=== PATIENT | male | born 1975 | race Caucasian/White ===

== ENCOUNTER 2016-05-31 12:13 | Emergency (ER) | payer MEDICAID ==
[2016-05-31 12:59] VITALS: BP 181/106; PULSE 89; RESP 16; TEMP 99; O2SAT 94
--- NOTE | 2016-05-31 13:43 | UCPHY ---
H & P Time Seen by Provider: 05/31/16 12:59 Patient Type: Established HPI/ROS: This patient presents with a chief complaint of an injury to his left 5th digit which occurred last night while playing basketball. He localizes pain to the MP joint and the proximal phalanx and is aware of significant swelling. Smoking Status: Never smoked Physical Exam: This is a well-developed well-nourished male who is in no acute distress. He is alert, appropriate and has a normal mental status. Examination of the left hand reveals prominent swelling over the proximal phalanx associated with ecchymosis that extends into the extensor surface overlying the distal 5th metacarpal. There is some tenderness over the MP joint but tenderness is maximal over the proximal phalanx. There is also swelling and tenderness extending distally. CMS is intact. Skin is intact. There is no deformity. Constitutional: Initial Vital Signs Temperature (C) 37.2 C 05/31/16 12:56 Heart Rate 89 05/31/16 12:56 Respiratory Rate 16 05/31/16 12:56 Blood Pressure 181/106 H 05/31/16 12:56 O2 Sat (%) 94 05/31/16 12:56 O2 Delivery Mode Room Air Allergies/Adverse Reactions: No Known Allergies Allergy (Verified 05/31/16 12:56) Home Medications: Medication Instructions Recorded NK [No Known Home Meds] 05/31/16 Medical Decision Making - Diagnostics Imaging: X-rays of the digit reveals a spiral fracture of the proximal phalanx without involvement of the MP or PIP joints. There is minimal deformity present. ED Course/Re-evaluation: A foam aluminum splint was applied. Differential Diagnosis: This patient was referred to Hand surgery because of potential shortening or angulation. Departure - Departure Disposition: Home, Routine, Self-Care Clinical Impression: Finger fracture, left Condition: Good Instructions: Finger Fracture (ED) Additional Instructions: You should make an appointment with the hand specialist whose name is given to you in these pages and arrange to be seen within the next 5 or 6 days. Wear the splint continuously until told not to. Apply ice to the area of injury for 20 minutes every 2 hours for 3 days following your injury. After 3 days (72 hours) it is safe to apply heat frequently throughout the day and I would recommend you're doing so. However if ice feels better it is okay to do this. Elevate the area of the injury as much as possible for the next 2 or 3 days or longer if you have a serious injury. If you have been told that it is safe to use the injured extremity do so in a limited fashion for the first 2-3 days. Afterwards left pain be your guide. Adult Pain & Fever Control: We recommend Acetaminophen (Tylenol) and Ibuprofen (Motrin, Advil) for pain and fever control. When fever is high or pain severe, both drugs can be used at the same time, but at different intervals. Please note the time differences. Your dose is: Acetaminophen [650]mg every 4 to 6 hours ibuprofen [600]mg every [6] hours with food OR naproxen Sodium (Aleve) [440]mg every 12 hours. Note: do not take Acetaminophen with Hydrocodone (Vicodin, Lortab) or Oxycodone (Percocet). These medications also contain Acetaminophen. No more than 3000 mg of Acetaminophen should be taken in 24 hours (for an adult) . The maximal dose of ibuprofen that it is safe in a 24-hour period is 2400 mg. You may take 400 mg every 4 hours, 600 mg every 6 hours or 800 mg every 8 hours safely. Referrals: Graciela Perez MD [Primary Care Provider] - As per Instructions Shashank Fisher MD [Medical Doctor] - As per Instructions - PQRS PQRS Measurement: Not applicable
== END 2016-05-31 13:55 | disposition home or self-care (01) ==
LOC: CED 12:13
PROC: 2W3KX1Z Immobilization of Left Finger using Splint (ICD-10-PCS; principal; 2016-05-31)
DX: S62.617A Displaced fracture of proximal phalanx of left little finger, initial encounter for closed fracture (principal); W22.8XXA Striking against or struck by other objects, initial encounter; Y93.67 Activity, basketball
CPT/HCPCS: 73140-PO; 99214-PO; G0463-PO

== ENCOUNTER 2017-10-15 21:03 | Emergency (ER) | payer MEDICAID ==
[2017-10-15 21:28] VITALS: BP 199/118
--- NOTE | 2017-10-15 21:49 | EDPHY ---
H & P Time Seen by Provider: 10/15/17 21:37 HPI/ROS: This patient sustained injury playing softball 3 weeks ago. He was playing pincher there is a line drive to his right ankle the blow to the medial aspect of the ankle. He has had ongoing pain the medial malleolus since that time that is 3/10 at baseline, 5/10 with dorsiflexion of the foot and walking. He reports partial improvement in symptoms from ibuprofen Tylenol and no other exacerbating factors. Given the persistent symptoms he came in for evaluation. This is his 1st visit to see a physician since the injury occurred. ROS: Musculoskeletal: No other injuries Cardiovascular: No significant posterior calf swelling or tenderness. No chest pain. Pulmonary: No dyspnea Integumentary: No associated lacerations abrasions 5 point ROS is otherwise negative Past Medical/Surgical History: Otherwise healthy Smoking Status: Never smoked Physical Exam: Physical Exam Vital signs are normal. General: No acute distress HEENT: Atraumatic. Eyes: Pupils equal and react to light. Extraocular motions are intact. Lungs: No respiratory distress. Cardiac: Brisk capillary refill is intact throughout. Pulses are 2+ and symmetric in the affected extremity. Skin: No rash or pallor. Extremities: Atraumatic normal except for right ankle Right ankle: Patient has medial malleolar tenderness. There is no lateral malleolus tenderness, Achilles tenderness or foot swelling or tenderness. Also no significant calf swelling or tenderness posteriorly. I do not perform anterior drawer since he had a fracture on x-ray. Neuro: Alert and oriented x3 with no sensorimotor deficits in the affected extremity Initial differential diagnosis: Contusion, sprain, fracture, traumatic hematoma Constitutional: Initial Vital Signs Temperature (C) 37 C 10/15/17 21:26 Heart Rate 85 10/15/17 21:26 Respiratory Rate 16 10/15/17 21:26 Blood Pressure 199/118 H 10/15/17 21:26 O2 Sat (%) 96 10/15/17 21:26 O2 Delivery Mode Room Air Allergies/Adverse Reactions: No Known Allergies Allergy (Verified 10/15/17 21:25) Home Medications: Medication Instructions Recorded NK [No Known Home Meds] 05/31/16 MDM/Departure - MDM Imaging Results: Imaging Impressions Ankle X-Ray 10/15/17 21:28 Impression: 1. Small calcifications adjacent to the medial malleolus as well as the distal fibula that could represent small chip or avulsion fractures of indeterminate age. 2. Lucency along the medial talar dome could represent a focus of osteonecrosis or osteochondritis dissecans. If indicated, consider correlation with MRI right ankle as clinically directed. Ankle x-rays: Avulsion fracture to medial malleolus by my interpretation. Also small calcification adjacent to the distal fibula Imaging: I viewed and interpreted images myself ED Course/Re-evaluation: Walker boot Patient declined crutches is he has crutches at home Discussion: Patient with subacute ankle avulsion fracture neurovascular intact without evidence of complications. I counseled him regarding ankle fracture reviewed his x-rays with him. He will follow up with his orthopedic physician- Dr. Contreras. - Depart Disposition: Home, Routine, Self-Care Clinical Impression: Fracture, ankle Qualifiers: Encounter type: initial encounter Fracture type: closed Laterality: right Qualified Code(s): S82.891A - Other fracture of right lower leg, initial encounter for closed fracture Condition: Good Instructions: Ankle Fracture (ED) Additional Instructions: Diagnosis: Avulsion fracture-medial malleolus of ankle Plan: Ibuprofen Tylenol for discomfort Walker boot whenever your up and about Limit activity Use cane or crutches if it hurts to bear weight with the splint Follow up with Dr. Contreras or Dr. Lee-call tomorrow to arrange for follow- up appointment for later this week if possible. Referrals: Graciela Perez MD [Primary Care Provider] - As per Instructions Francois Lee MD [Medical Doctor] - As per Instructions Ori Contreras MD [Medical Doctor] - As per Instructions
== END 2017-10-15 21:59 | disposition home or self-care (01) ==
LOC: CED 21:03
DX: S82.51XA Displaced fracture of medial malleolus of right tibia, initial encounter for closed fracture (principal); W21.03XA Struck by baseball, initial encounter; Y93.64 Activity, baseball
CPT/HCPCS: 73610-PO; L4386